=== PATIENT | male | born 1980 | race African-American/Black ===

== ENCOUNTER 2020-02-13 05:57 | Emergency (ER) | payer OTHER ==
[~2020-02-13] VITALS: Ht 175.3 cm; Wt 77.1 kg
[2020-02-13 05:59] VITALS: BP 132/78; Ht 175.3 cm; Wt 77.1 kg
== END 2020-02-13 07:11 | disposition home or self-care (01) ==
LOC: ED 05:57
DX: M54.2 Cervicalgia (principal); M54.5 Low back pain; V49.49XA Driver injured in collision with other motor vehicles in traffic accident, initial encounter; Y93.I9 Activity, other involving external motion; Y92.488 Other paved roadways as the place of occurrence of the external cause; Y99.8 Other external cause status